=== PATIENT | male | born 1995 | race Hispanic/Latino ===

== ENCOUNTER 2019-11-10 10:05 | Emergency (ER) | payer SELFPAY ==
[2019-11-10] MEDS ORDERED: Lidocaine 1% w/Epinephrine 1:100K 20 ML VIAL ONE (10:35)
== END 2019-11-10 11:04 | disposition home or self-care (01) ==
LOC: MADERS 10:05
DX: L02.411 Cutaneous abscess of right axilla (principal)
CPT/HCPCS: 10060

== ENCOUNTER 2019-11-12 13:31 | Emergency (ER) | payer SELFPAY | END 2019-11-12 14:35 | disposition home or self-care (01) | LOC: MADERS 13:31 | DX: L73.2 Hidradenitis suppurativa (principal) | CPT/HCPCS: 99282 ==

== ENCOUNTER 2019-11-14 14:34 | Emergency (ER) | payer SELFPAY | END 2019-11-14 15:07 | disposition home or self-care (01) | LOC: MADERS 14:34 | DX: Z48.817 Encounter for surgical aftercare following surgery on the skin and subcutaneous tissue (principal) | CPT/HCPCS: 99282 ==

== ENCOUNTER 2020-07-11 15:46 | Emergency (ER) | payer SELFPAY ==
--- NOTE | 2020-07-11 16:16 | RAD ---
EXAM: 2 views of the neck soft tissue HISTORY: Possible foreign object stuck in the throat. Possible wire from a barbecue brush COMPARISON: None FINDINGS: There is no evidence of radio opaque foreign body. No prevertebral soft tissue swelling is seen. Th e bones are unremarkable. IMPRESSION: Unremarkable exam
--- NOTE | 2020-07-11 17:24 | CT ---
EXAM: CT neck without contrast HISTORY: Possibly swallowed a bristle from a metallic brush COMPARISON: None TECHNIQUE: Multiple contiguous axial images were obtained and a CT of the neck without contrast. Sagi ttal and coronal reformats were performed. FINDINGS: No obvious mucosal abnormality is seen in the nasopharynx, oropharynx, hypopharynx, or subglottic reg ions, but evaluation is limited without IV contrast. No radiopaque foreign body is seen. The parapharyngeal spaces are symmetric. No cervical adenopathy is seen. The salivary glands are symmetric without focal abnormality. The thyroid is unremarkable. No osseous abnormality is seen in the cervical spine. The visualized intracranial structures are unremarkable. IMPRESSION: No radiopaque foreign bodies seen in the neck.
--- NOTE | 2020-07-11 17:28 | CT ---
EXAM: CT of the chest without contrast HISTORY: Possible swallowed metallic bristle from a barbecue brush COMPARISON: None TECHNIQUE: Multiple contiguous axial images were obtained in a CT the chest without contrast. Coronal and sagittal reformats were performed. FINDINGS: HEART: Normal in size without focal cardiac abnormality MEDIASTINUM: No hilar or mediastinal lymphadenopathy. Evaluation of the mediastinum is limited withou t IV contrast. LUNGS: No focal infiltrates, nodules, or masses. PLEURAL SPACE: No pneumothorax or pleural effusion. CHEST WALL SOFT TISSUES: Unremarkable OSSEOUS STRUCTURES: No acute abnormality. IMPRESSION: No evidence of acute intrathoracic abnormality. No radiopaque foreign body identified
--- NOTE | 2020-07-11 17:41 | CT ---
CT Abdomen WO Con: 07/11/2020 4:57 PM HISTORY: Possible swallowed metallic bristle from a barbecue brush COMPARISON: None. TECHNIQUE: Multiple contiguous axial images were obtained and a CT of the abdomen and pelvis without IV contrast . Coronal and sagittal reformats were performed. FINDINGS: This examination is limited for the evaluation of solid organs and vascular structures due to the lac k of intravenous contrast. Lower Chest: within normal limits. Abdomen: Liver: within normal limits. Bile Ducts: Normal caliber. Gallbladder: No calcified gallstones. Normal caliber wall. Pancreas: within normal limits. Spleen: within normal limits. Adrenals: within normal limits. Kidneys: within normal limits. Pelvis: Reproductive Organs: No pelvic masses. Ureters: within normal limits. Bladder: within normal limits. Bowel: Normal caliber. No radiopaque foreign body is seen within the bowel or abdomen. Normal appendi x. Mesenteric Lymph Nodes: No enlarged mesenteric lymph nodes. Peritoneum: No ascites or free air, no fluid collection. Vessels: Normal caliber aorta Retroperitoneum: within normal limits. Abdominal Wall: within normal limits. Bones: Unremarkable. IMPRESSION: No radiopaque foreign body identified
[2020-07-11] MEDS ORDERED: Ketorolac Tromethamine 60 MG/2 ML VIAL ONE (18:26)
== END 2020-07-11 18:37 | disposition home or self-care (01) ==
LOC: MADERS 15:46
DX: T18.108A Unspecified foreign body in esophagus causing other injury, initial encounter (principal)
CPT/HCPCS: 70360; 70490; 71250; 74150; 96372; J1885

== ENCOUNTER 2021-12-25 18:46 | Emergency (ER) | payer SELFPAY ==
[2021-12-25 19:54] LABS: Bilirubin Negative (Negative); Blood, Urine Trace (Negative); Clarity Clear (Clear); Glucose, Urine (Dipstick) 500 mg/dL (Negative); Ketone, Urine Negative (Negative); Leukocyte Negative (Negative); Nitrite Negative (Negative); Protein, Urine (Dipstick) 30 mg/dL (Neg-Trace)
[2021-12-25 20:03] LABS: RBC/HPF 0-3 HPF (0-3)
[2021-12-25 20:04] LABS: Bacteria/HPF None Seen HPF (None Seen); Transitional Epithelial 0-3 HPF (None Seen); WBC/HPF None Seen HPF (0-3)
[2021-12-25 20:05] LABS: Triple Phosphate Crystal Rare HPF (None Seen)
== END 2021-12-25 20:51 | disposition home or self-care (01) ==
LOC: MADERS 18:46
DX: F41.0 Panic disorder [episodic paroxysmal anxiety] (principal); R73.9 Hyperglycemia, unspecified
CPT/HCPCS: 81003; 81015; 93005

== ENCOUNTER 2022-12-02 12:45 | Emergency (ER) | payer SELFPAY ==
[2022-12-02 13:34] LABS: Anion Gap 16 mmol/L (10-20); BUN (Urea Nitrogen) 10 mg/dL (8.9-20.6); Calc. Creatinine Clearance 0 mL/min (70-130); Calcium 9.8 mg/dL (7.8-10.44); Carbon Dioxide 26 mmol/L (22-29); Chloride 97 mmol/L (98-107); Estimated GFR 113; Glucose 352 mg/dL (70-105); Potassium 4.7 mmol/L (3.5-5.1); Sodium 134 mmol/L (136-145)
[2022-12-02 14:06] LABS: #Basophils 0.1 thou/uL (0.0-0.2); #Eosinphils 0.3 thou/uL (0.0-0.7); #Lymphocytes 2.9 thou/uL (1.20-3.40); #Monocytes 0.5 thou/uL (0.11-0.59); #Neutrophils 6.8 thou/uL (1.40-6.50); %Basophils 1.3 % (0.0-1.0); %Eosinophils 2.8 % (0.0-10.0); %Monocytes 4.9 % (0.0-10.0); Hemoglobin 17.3 g/dL (14.0-18.0); Mean Corpuscular HGB CONC 33.4 g/dL (32.0-36.0); Mean Corpuscular Hemoglobin 32.1 pg (27.0-31.0); Mean Platelet Volume 10.5 fL (7.4-10.4); Platelet Count 252 10x3/uL (130-400); RBC Distribution Width 11.4 % (11.5-14.5); Red Blood Cell (RBC) Count 5.38 mill/uL (4.70-6.10); White Blood Cell (WBC) Count 10.6 10x3/uL (4.8-10.8)
== END 2022-12-02 14:40 | disposition home or self-care (01) ==
LOC: MADERS 12:45
DX: R00.2 Palpitations (principal); E11.9 Type 2 diabetes mellitus without complications; I10 Essential (primary) hypertension; E78.00 Pure hypercholesterolemia, unspecified
CPT/HCPCS: 80048; 84484; 85025; 93005

== ENCOUNTER 2023-06-20 06:45 | Emergency (ER) | payer SELFPAY ==
[~2023-06-20 06:45] MED LIST: Sodium Chloride 0.9% 1,000 ML BAG ONE
[2023-06-20] MEDS ORDERED: Sodium Chloride 0.9% 1,000 ML ONE ×3 (07:04→10:39)
[2023-06-20] MEDS ORDERED: Lorazepam 2 MG/ML VIAL ONE ×2 (07:04→10:39)
[2023-06-20 07:06] LABS: #Basophils 0.1 thou/uL (0.0-0.2); #Eosinphils 0.1 thou/uL (0.0-0.7); #Lymphocytes 3.6 thou/uL (1.20-3.40); #Monocytes 0.6 thou/uL (0.11-0.59); %Basophils 1.2 % (0.0-1.0); %Lymphocytes 38.3 % (21.0-51.0); %Monocytes 6.7 % (0.0-10.0); %Neutrophils 52.9 % (42.0-75.0); Hematocrit 48.8 % (42.0-52.0); Mean Corpuscular HGB CONC 32.8 g/dL (32.0-36.0); Mean Corpuscular Hemoglobin 31.3 pg (27.0-31.0); Mean Corpuscular Volume 95.4 fl (78.0-98.0); Mean Platelet Volume 9.5 fL (7.4-10.4); Platelet Count 199 10x3/uL (130-400); RBC Distribution Width 11.2 % (11.5-14.5); Red Blood Cell (RBC) Count 5.11 mill/uL (4.70-6.10); White Blood Cell (WBC) Count 9.5 10x3/uL (4.8-10.8)
[2023-06-20 07:25] LABS: Acetaminophen Less than 10 mcg/mL (10.0-30.0); Alcohol 95.4 mg/dL (Less than 10); Magnesium 1.9 mg/dL (1.6-2.6); Salicylate Less than 8.0 mg/dL (15.0-30.0)
[2023-06-20 07:31] LABS: ALT (SGPT) 58 U/L (8-55); AST (SGOT) 64 U/L (5-34); Alkaline Phosphatase 106 U/L (40-110); Anion Gap 25 mmol/L (10-20); BUN (Urea Nitrogen) 5 mg/dL (8.9-20.6); Bilirubin, Total 0.7 mg/dL (0.2-1.2); Calc. Creatinine Clearance 0 mL/min (70-130); Calcium 9.5 mg/dL (7.8-10.44); Carbon Dioxide 17 mmol/L (22-29); Chloride 99 mmol/L (98-107); Estimated GFR 122; Globulin 5.3 g/dL (2.4-3.5); Glucose 310 mg/dL (70-105); Potassium 3.9 mmol/L (3.5-5.1); Protein, Total 9.3 g/dL (6.0-8.3); Sodium 137 mmol/L (136-145)
[2023-06-20 07:38] LABS: Troponin I Less than 0.010 ng/mL (< 0.028)
[2023-06-20] MEDS ORDERED: Thiamine HCl 200 MG/2 ML VIAL ONE (08:06)
[2023-06-20 08:34] LABS: Amphetamine Not Detected (NotDetected); Barbiturates Screen Not Detected (NotDetected); Benzodiazepine Screen Not Detected (NotDetected); Cocaine Metabolite Screen Not Detected (NotDetected); Methadone Not Detected (NotDetected); Methamphetamine Not Detected (NotDetected); Opiate Screen Not Detected (NotDetected); Oxycodone Screen Not Detected (NotDetected); Phencyclidine (PCP) Not Detected (NotDetected); THC/Cannabinoid Screen Not Detected (NotDetected); Tricyclic Screen Not Detected (NotDetected)
[2023-06-20 10:42] LABS: Base Excess-Venous 0.5 mmol/L (-2.0 to 3.0); Bicarbonate (HCO3v) 23.4 mmol/L (22.0-28.0); CO2 Tension (PvCO2) 32.6 mmHg (42.0-51.0); Calcium, Ionized 1.03 mmol/L (1.15-1.33); Chloride 106 mmol/L (98-107); Hemoglobin - Calc 16.4 g/dL (14.0-18.0); Potassium 4.1 mmol/L (3.5-5.1); Sodium 140 mmol/L (138-145); T. Carbon Dioxide 24.4 mmol/L (22.0-28.0); vO2 Saturation-calc 99.4 % (60.0-85.0)
== END 2023-06-20 12:00 | disposition home or self-care (01) ==
LOC: MADERS 06:45
DX: F10.230 Alcohol dependence with withdrawal, uncomplicated (principal); E87.29 Other acidosis; E11.65 Type 2 diabetes mellitus with hyperglycemia; I10 Essential (primary) hypertension
CPT/HCPCS: 71045; 80053; 80306; 80307; 82010; 82330; 82803; 83605; 83735; 84484; 85025; 93005; 96361; 96365; 96375; 96376; J2060; J3411; J7050

== ENCOUNTER 2024-01-18 09:01 | Emergency (ER) | payer SELFPAY ==
[2024-01-18 10:04] LABS: #Basophils 0.1 thou/uL (0.0-0.2); #Eosinphils 0.1 thou/uL (0.0-0.7); #Lymphocytes 1.8 thou/uL (1.20-3.40); #Monocytes 0.6 thou/uL (0.11-0.59); #Neutrophils 6.8 thou/uL (1.40-6.50); %Basophils 1.4 % (0.0-1.0); %Eosinophils 1.2 % (0.0-10.0); %Lymphocytes 19.1 % (21.0-51.0); %Monocytes 6.4 % (0.0-10.0); %Neutrophils 71.9 % (42.0-75.0); Hematocrit 49.8 % (42.0-52.0); Hemoglobin 15.2 g/dL (14.0-18.0); Mean Corpuscular HGB CONC 30.5 g/dL (32.0-36.0); Mean Corpuscular Hemoglobin 29.2 pg (27.0-31.0); Mean Corpuscular Volume 95.6 fl (78.0-98.0); Mean Platelet Volume 7.7 fL (7.4-10.4); Platelet Count 166 10x3/uL (130-400); RBC Distribution Width 11.6 % (11.5-14.5); Red Blood Cell (RBC) Count 5.21 mill/uL (4.70-6.10); White Blood Cell (WBC) Count 9.5 10x3/uL (4.8-10.8)
[2024-01-18] MEDS ORDERED: Lactated Ringer's 2,000 ML ONE (10:09)
[2024-01-18 10:16] LABS: ALT (SGPT) 44 U/L (8-55); AST (SGOT) 47 U/L (5-34); Albumin 4.2 g/dL (3.5-5.0); Alkaline Phosphatase 104 U/L (40-110); Anion Gap 19 mmol/L (10-20); BUN (Urea Nitrogen) 4 mg/dL (8.9-20.6); Bilirubin, Total 1.1 mg/dL (0.2-1.2); Calc. Creatinine Clearance 0 mL/min (70-130); Calcium 9.3 mg/dL (7.8-10.44); Carbon Dioxide 22 mmol/L (22-29); Chloride 98 mmol/L (98-107); Estimated GFR 122; Globulin 5.5 g/dL (2.4-3.5); Glucose 272 mg/dL (70-105); Lipase 24 U/L (8-78); Potassium 4.4 mmol/L (3.5-5.1); Protein, Total 9.7 g/dL (6.0-8.3); Sodium 135 mmol/L (136-145)
[2024-01-18 11:20] LABS: Bilirubin Negative (Negative); Blood, Urine Trace (Negative); Clarity Clear (Clear); Glucose, Urine (Dipstick) >=1000 mg/dL (Negative); Ketone, Urine Negative (Negative); Leukocyte Negative (Negative); Nitrite Negative (Negative); Protein, Urine (Dipstick) 100 mg/dL (Neg-Trace); Specific Gravity, Urine 1.025 (1.005-1.030); Urobilinogen 0.2 mg/dL (Less than 2)
[2024-01-18 11:25] LABS: Bacteria/HPF None Seen HPF (None Seen); CAUTI Indications for Culture Fever or rigors; Mucous/LPF 1+ LPF (<2+); RBC/HPF 0-3 HPF (0-3); Squamous Epithelial 0-3 HPF (0-3); WBC/HPF 0-3 HPF (0-3)
[2024-01-18 11:26] LABS: Urine Culture Reflex No No
[2024-01-18 11:29] LABS: Amphetamine Not Detected (NotDetected); Barbiturates Screen Not Detected (NotDetected); Benzodiazepine Screen Not Detected (NotDetected); Cocaine Metabolite Screen Not Detected (NotDetected); Methadone Not Detected (NotDetected); Methamphetamine Not Detected (NotDetected); Opiate Screen Not Detected (NotDetected); Oxycodone Screen Not Detected (NotDetected); Phencyclidine (PCP) Not Detected (NotDetected); THC/Cannabinoid Screen Not Detected (NotDetected); Tricyclic Screen Not Detected (NotDetected)
== END 2024-01-18 13:05 | disposition home or self-care (01) ==
LOC: MADERS 09:01
DX: F10.20 Alcohol dependence, uncomplicated (principal); E11.9 Type 2 diabetes mellitus without complications; I10 Essential (primary) hypertension
CPT/HCPCS: 36416; 80053; 80306; 80307; 81001; 83690; 84443; 85025; 93005; J7120

== ENCOUNTER 2024-07-02 13:57 | Emergency (ER) | payer SELFPAY ==
[2024-07-02] MEDS ORDERED: Ondansetron PF 4 MG/2 ML Vial ONE (14:40)
[2024-07-02 15:10] LABS: #Basophils 0.1 thou/uL (0.0-0.2); #Eosinophils 0.1 thou/uL (0.0-0.7); #Lymphocytes 4.1 thou/uL (1.20-3.40); #Monocytes 0.5 thou/uL (0.11-0.59); #Neutrophils 5.7 thou/uL (1.40-6.50); %Basophils 1.1 % (0.0-1.0); %Eosinophils 0.5 % (0.0-10.0); %Lymphocytes 39.1 % (21.0-51.0); %Monocytes 4.6 % (0.0-10.0); %Neutrophils 54.7 % (42.0-75.0); Hemoglobin 14.9 g/dL (14.0-18.0); Mean Corpuscular HGB CONC 31.8 g/dL (32.0-36.0); Mean Corpuscular Hemoglobin 29.7 pg (27.0-31.0); Mean Corpuscular Volume 93.5 fl (78.0-98.0); Mean Platelet Volume 9.4 fL (7.4-10.4); Platelet Count 210 10x3/uL (130-400); RBC Distribution Width 11.5 % (11.5-14.5); Red Blood Cell (RBC) Count 5.03 mill/uL (4.70-6.10); White Blood Cell (WBC) Count 10.4 10x3/uL (4.8-10.8)
[2024-07-02 15:21] LABS: ALT (SGPT) 59 U/L (8-55); AST (SGOT) 85 U/L (5-34); Albumin 3.5 g/dL (3.5-5.0); Alkaline Phosphatase 111 U/L (40-110); Anion Gap 24 mmol/L (10-20); BUN (Urea Nitrogen) 4 mg/dL (8.9-20.6); Bilirubin, Total 0.6 mg/dL (0.2-1.2); Calc. Creatinine Clearance 0 mL/min (70-130); Calcium 8.9 mg/dL (7.8-10.44); Carbon Dioxide 20 mmol/L (22-29); Chloride 96 mmol/L (98-107); Estimated GFR 120; Globulin 5.9 g/dL (2.4-3.5); Glucose 318 mg/dL (70-105); Potassium 4.5 mmol/L (3.5-5.1); Protein, Total 9.4 g/dL (6.0-8.3); Sodium 135 mmol/L (136-145)
[2024-07-02 15:24] LABS: Troponin I Less than 0.010 ng/mL (< 0.028)
== END 2024-07-02 17:40 | disposition home or self-care (01) ==
LOC: MADERS 13:57
DX: E11.65 Type 2 diabetes mellitus with hyperglycemia (principal); K70.10 Alcoholic hepatitis without ascites; I10 Essential (primary) hypertension
CPT/HCPCS: 36416; 71045; 80053; 82010; 84484; 85025; 93005; 94760; 96361; 96374; J2405

== ENCOUNTER 2024-11-20 00:05 | Emergency (ER) | payer SELFPAY ==
[2024-11-20] MEDS ORDERED: Thiamine HCl 200 MG/2 ML VIAL ONE (00:27)
[2024-11-20] MEDS ORDERED: Lactated Ringer's 1,000 ML ONE (00:27)
[2024-11-20] MEDS ORDERED: Folic Acid 5 MG/ML MDV ONE (00:27)
[2024-11-20] MEDS ORDERED: Aspirin Chewable 81 MG TAB ONE (00:35)
[2024-11-20] MEDS ORDERED: Ondansetron PF 4 MG/2 ML Vial ONE (00:35)
[2024-11-20] MEDS ORDERED: Nitroglycerin 0.4 MG TAB 1 EACH ONE (00:35)
[2024-11-20] MEDS ORDERED: Diazepam 10 MG/2 ML SYRINGE ONE ×2 (00:35→00:55)
[2024-11-20 00:39] LABS: #Basophils 0.1 thou/uL (0.0-0.2); #Eosinophils 0.2 thou/uL (0.0-0.7); #Lymphocytes 3.6 thou/uL (1.20-3.40); #Monocytes 0.5 thou/uL (0.11-0.59); #Neutrophils 4.2 thou/uL (1.40-6.50); %Eosinophils 1.9 % (0.0-10.0); %Lymphocytes 42.7 % (21.0-51.0); %Monocytes 5.3 % (0.0-10.0); %Neutrophils 49.1 % (42.0-75.0); Hematocrit 45.4 % (42.0-52.0); Hemoglobin 14.5 g/dL (14.0-18.0); Mean Corpuscular Hemoglobin 29.3 pg (27.0-31.0); Mean Corpuscular Volume 91.7 fl (78.0-98.0); Mean Platelet Volume 7.9 fL (7.4-10.4); Platelet Count 172 10x3/uL (130-400); RBC Distribution Width 12.5 % (11.5-14.5); Red Blood Cell (RBC) Count 4.95 mill/uL (4.70-6.10); White Blood Cell (WBC) Count 8.5 10x3/uL (4.8-10.8)
[2024-11-20 00:50] LABS: INR-International Normal Ratio 1.1; Prothrombin Time 14.7 sec (12.0-14.7)
[2024-11-20 00:51] LABS: PTT 31.7 sec (22.9-36.1)
[2024-11-20 00:53] LABS: D-Dimer Test 0.27 mcg/mL (0.27-0.43)
[2024-11-20 00:58] LABS: ALT (SGPT) 55 U/L (Less than 45); AST (SGOT) 85 U/L (11-34); Alkaline Phosphatase 97 U/L (40-110); Anion Gap 18 mmol/L (10-20); BUN (Urea Nitrogen) 4 mg/dL (8.9-20.6); Bilirubin, Total 0.7 mg/dL (0.3-1.2); CK (CPK) 352 U/L (30-200); Calc. Creatinine Clearance 0 mL/min (70-130); Calcium 9.1 mg/dL (7.8-10.44); Carbon Dioxide 25 mmol/L (22-29); Chloride 97 mmol/L (98-107); Estimated GFR 125; Globulin 5.8 g/dL (2.4-3.5); Glucose 228 mg/dL (70-105); Potassium 4.2 mmol/L (3.5-5.1); Protein, Total 9.8 g/dL (6.0-8.3); Sodium 136 mmol/L (136-145)
[2024-11-20 01:03] LABS: Troponin I Less than 0.010 ng/mL (< 0.028)
[2024-11-20 01:04] LABS: Acetaminophen Less than 10 mcg/mL (Less than 10); Alcohol 188.8 mg/dL (Less than 10); Lipase 35 U/L (8-78); Salicylate Less than 8.0 mg/dL (Less than 8.0)
== END 2024-11-20 01:58 | disposition home or self-care (01) ==
LOC: MADERS 00:05
DX: F10.239 Alcohol dependence with withdrawal, unspecified (principal); R07.89 Other chest pain; R74.01 Elevation of levels of liver transaminase levels; R29.700 NIHSS score 0; I10 Essential (primary) hypertension; E11.65 Type 2 diabetes mellitus with hyperglycemia; E78.5 Hyperlipidemia, unspecified; Y90.6 Blood alcohol level of 120-199 mg/100 ml
CPT/HCPCS: 71046; 80053; 80307; 82550; 83690; 83735; 84484; 85025; 85379; 85610; 85730; 93005; 94760; 96361; 96374; 96375; J2405; J3360; J3411; J7120

== ENCOUNTER 2025-04-29 16:43 | Emergency (ER) | payer SELFPAY ==
[~2025-04-29 16:43] MED LIST changes: +Iopamidol 370 76% 100 ML VIAL ONE; -Sodium Chloride 0.9% 1,000 ML BAG ONE
[2025-04-29] MEDS ORDERED: Folic Acid 5 MG/ML MDV ONE (17:31)
[2025-04-29] MEDS ORDERED: Multivit, Adult Inj 10 ML VIAL ONE (17:35)
[2025-04-29 17:40] LABS: #Basophils 0.2 thou/uL (0.0-0.2); #Eosinophils 0.1 thou/uL (0.0-0.7); #Lymphocytes 3.7 thou/uL (1.20-3.40); #Monocytes 0.3 thou/uL (0.11-0.59); #Neutrophils 6.5 thou/uL (1.40-6.50); %Basophils 1.7 % (0.0-1.0); %Eosinophils 1.1 % (0.0-10.0); %Lymphocytes 33.9 % (21.0-51.0); %Monocytes 3.0 % (0.0-10.0); %Neutrophils 60.3 % (42.0-75.0); Hematocrit 38.9 % (42.0-52.0); Hemoglobin 12.4 g/dL (14.0-18.0); Mean Corpuscular Hemoglobin 29.6 pg (27.0-31.0); Mean Corpuscular Volume 92.6 fl (78.0-98.0); Platelet Count 397 10x3/uL (130-400); Red Blood Cell (RBC) Count 4.21 mill/uL (4.70-6.10); White Blood Cell (WBC) Count 10.8 10x3/uL (4.8-10.8)
[2025-04-29 17:52] LABS: ALT (SGPT) 11 U/L (Less than 45); AST (SGOT) 39 U/L (11-34); Albumin 3.3 g/dL (3.1-4.5); Alkaline Phosphatase 188 U/L (40-110); Anion Gap 19 mmol/L (10-20); BUN (Urea Nitrogen) 6 mg/dL (8.9-20.6); Bilirubin, Total 0.4 mg/dL (0.3-1.2); Calc. Creatinine Clearance 0 mL/min (70-130); Calcium 8.7 mg/dL (7.8-10.44); Carbon Dioxide 18 mmol/L (22-29); Chloride 102 mmol/L (98-107); Globulin 6.4 g/dL (2.4-3.5); Glucose 131 mg/dL (70-105); Potassium 4.3 mmol/L (3.5-5.1); Sodium 135 mmol/L (136-145); Troponin I 0.022 ng/mL (< 0.028)
[2025-04-29 17:54] LABS: Acetaminophen Less than 10 mcg/mL (Less than 10); Lipase 20 U/L (8-78); Magnesium 2.0 mg/dL (1.6-2.6); Salicylate Less than 8.0 mg/dL (Less than 8.0)
[2025-04-29 18:02] LABS: Glucose, Urine (Dipstick) Negative (Negative); Leukocyte Negative (Negative); Protein, Urine (Dipstick) 100 mg/dL (Neg-Trace); Specific Gravity, Urine Less/Equal 1.005 (1.005-1.030)
[2025-04-29 18:10] LABS: Cocaine Metabolite Screen Negative (Negative); THC/Cannabinoid Screen Negative (Negative); Tricyclic Screen Negative (Negative)
[2025-04-29 18:15] LABS: Bacteria/HPF Rare-Few HPF (None Seen); CAUTI Indications for Culture Alt mental st,lethar; Mucous/LPF Few LPF (<2+); WBC/HPF 0-3 HPF (0-3)
[2025-04-29 18:16] LABS: Urine Culture Reflex No No
== END 2025-04-29 20:42 | disposition home or self-care (01) ==
LOC: MADERS 16:43
DX: F10.229 Alcohol dependence with intoxication, unspecified (principal); S90.01XA Contusion of right ankle, initial encounter; M54.50 Low back pain, unspecified; I10 Essential (primary) hypertension; E11.9 Type 2 diabetes mellitus without complications; Z79.84 Long term (current) use of oral hypoglycemic drugs; Z79.899 Other long term (current) drug therapy; Y90.8 Blood alcohol level of 240 mg/100 ml or more; W19.XXXA Unspecified fall, initial encounter
CPT/HCPCS: 70450; 71260; 72125; 74177; 80053; 80306; 80307; 81001; 83690; 83735; 84484; 85025; 93005; 96374; 96375; J3411; J7030; Q9967

== ENCOUNTER 2025-08-13 18:08 | Emergency (ER) | payer SELFPAY ==
[2025-08-13 19:18] LABS: #Basophils 0.1 thou/uL (0.0-0.2); #Eosinophils 0.1 thou/uL (0.0-0.7); #Lymphocytes 1.8 thou/uL (1.20-3.40); #Monocytes 0.3 thou/uL (0.11-0.59); #Neutrophils 2.8 thou/uL (1.40-6.50); %Basophils 2.3 % (0.0-1.0); %Eosinophils 2.8 % (0.0-10.0); %Lymphocytes 35.1 % (21.0-51.0); %Monocytes 5.2 % (0.0-10.0); %Neutrophils 54.6 % (42.0-75.0); Hematocrit 33.5 % (42.0-52.0); Hemoglobin 10.9 g/dL (14.0-18.0); Mean Corpuscular Hemoglobin 30.8 pg (27.0-31.0); Mean Corpuscular Volume 94.9 fl (78.0-98.0); Platelet Count 203 10x3/uL (130-400); Red Blood Cell (RBC) Count 3.53 mill/uL (4.70-6.10); White Blood Cell (WBC) Count 5.2 10x3/uL (4.8-10.8)
[2025-08-13] MEDS ORDERED: Multivit, Adult Inj 10 ML VIAL ONE (19:24)
[2025-08-13] MEDS ORDERED: Folic Acid 5 MG/ML MDV ONE (19:24)
[2025-08-13] MEDS ORDERED: Ondansetron PF 4 MG/2 ML Vial ONE (19:24)
[2025-08-13 19:26] LABS: Glucose, Urine (Dipstick) Negative (Negative); Leukocyte Negative (Negative); Protein, Urine (Dipstick) > or equal to 300 mg/dL (Neg-Trace); Specific Gravity, Urine 1.010 (1.005-1.030)
[2025-08-13 19:34] LABS: ALT (SGPT) 50 U/L (Less than 45); AST (SGOT) 119 U/L (11-34); Albumin 3.6 g/dL (3.1-4.5); Alkaline Phosphatase 195 U/L (40-110); Anion Gap 17 mmol/L (10-20); BUN (Urea Nitrogen) 8 mg/dL (8.9-20.6); Bilirubin, Total 0.8 mg/dL (0.3-1.2); Calc. Creatinine Clearance 0 mL/min (70-130); Calcium 8.1 mg/dL (7.8-10.44); Carbon Dioxide 21 mmol/L (22-29); Chloride 96 mmol/L (98-107); Globulin 4.8 g/dL (2.4-3.5); Glucose 118 mg/dL (70-105); Lipase 62 U/L (8-78); Magnesium 2.0 mg/dL (1.6-2.6); Potassium 4.9 mmol/L (3.5-5.1); Sodium 129 mmol/L (136-145); Troponin I 0.030 ng/mL (< 0.028)
[2025-08-13 19:35] LABS: Bacteria/HPF 1+ HPF (None Seen); CAUTI Indications for Culture Alt mental st,lethar; WBC/HPF 0-3 HPF (0-3)
[2025-08-13 19:36] LABS: Cocaine Metabolite Screen Negative (Negative); THC/Cannabinoid Screen Negative (Negative); Tricyclic Screen Negative (Negative); Urine Culture Reflex No No
[2025-08-13 20:06] LABS: Acetaminophen Less than 10 mcg/mL (Less than 10); Salicylate Less than 8.0 mg/dL (Less than 8.0)
[2025-08-14 06:50] LABS: Troponin I 0.027 ng/mL (< 0.028)
== END 2025-08-14 07:48 | disposition home or self-care (01) ==
LOC: MADERS 18:08
DX: F10.229 Alcohol dependence with intoxication, unspecified (principal); Y90.8 Blood alcohol level of 240 mg/100 ml or more; I10 Essential (primary) hypertension; E11.9 Type 2 diabetes mellitus without complications; F17.210 Nicotine dependence, cigarettes, uncomplicated
CPT/HCPCS: 80053; 80306; 80307; 81001; 83690; 83735; 84484; 85025; 93005; 94760; 96365; 96368; 96375; J2060; J2405; J3411; J7030; Q0169